=== PATIENT | male | born 1970 | race Caucasian/White ===

== ENCOUNTER 2021-02-03 09:48 | Emergency (ER) | payer BC, SELFPAY ==
--- NOTE | ~2021-02-03 | CT_ITS ---
EXAMINATION: CTA chest PE protocol DATE: 02/03/2021 10:48 INDICATION: Shortness of breath, dyspnea. Dizziness. TECHNIQUE: Computed tomography angiography (CTA) of the chest was performed with 100 mL Omnipaque-350 intravenous contrast timed to evaluate the pulmonary arteries. Coronal maximum intensity projection 3D-reconstructions were created by the technologist. Automated exposure control and iterative reconst ruction technique were employed. Exam dose: 325.81 mGy-cm total exam DLP. COMPARISON: 02/03/2021 portable AP chest FINDINGS: There is diagnostic contrast enhancement of the pulmonary central venous of pulmonary embol ism. No thoracic aortic aneurysm or dissection. Normal heart size. No pericardial or pleural effusion. The lungs are clear of infiltrate or consolidation. No pulmonary mass lesion is detected. Normal morphology of the adrenal glands. Included upper abdominal structures are unremarkable. No suspicious osteolytic or osteoblastic lesions. IMPRESSION: No evidence of pulmonary embolism Reviewed, dictated and finalized at [facility]. Reviewed, dictated and finalized at [facility].
--- NOTE | ~2021-02-03 | XR_ITS ---
EXAMINATION: XR chest 1V portable 02/03/2021 10:15 INDICATION: Cough PROCEDURE: AP portable chest COMPARISON: No prior studies for comparison. FINDINGS: The lungs are clear. The cardiomediastinal silhouette is within normal limits. There are no pleural effusions. There is no pneumothorax suspected. IMPRESSION: 1: NO ACUTE CARDIOPULMONARY DISEASE. Reviewed, dictated and finalized at [facility].
[2021-02-03 09:57] VITALS: BP 136/108; PULSE 108; RESP 24; TEMP 36.7; O2SAT 99
--- NOTE | 2021-02-03 09:57 | ECG_ITS ---
Measurements Intervals [place] Rate: 97 P: 148 GA: 182 QRS: 68 QRSD: 81 T: 128 QT: 313 QTc: 398 Interpretive Statements SINUS RHYTHM LIMB LEAD REVERSAL POSSIBLE LEFT ATRIAL ENLARGEMENT BORDERLINE ECG Electronically Signed On 02-03-2021 11:54:15 CDT by Kosta Padron D.O.
[2021-02-03 10:17] LABS: Basophils Percent Auto 0.3 % (0.2-1.2); Eosinophils Absolute Auto 0.1 K/mm3 (0-0.3); Eosinophils Percent Auto 2.5 % (0-4.4); Hematocrit 43.3 % (42.0-52.0); Hemoglobin 15.1 g/dL (14.0-18.0); Immature Granulocyte Absolute 0.01 K/mm3 (0.00-0.031); Immature Granulocyte Percent A 0.3 % (0-0.5); Lymphocytes Absolute Auto 0.31 K/mm3 (0.9-3.2); Lymphocytes Percent Auto 8.4 % (18.3-44.2); Mean Corpuscular HGB Conc 34.9 g/dl (32-36); Mean Corpuscular Hemoglobin 31.4 pg (26-34); Mean Platelet Volume 9.3 fl (7.4-10.4); Monocytes Absolute Auto 0.4 K/mm3 (0.1-0.6); Monocytes Percent Auto 9.8 % (2.6-8.5); Neutrophils Absolute Auto 2.9 K/mm3 (1.3-6.7); Neutrophils Percent Auto 78.7 % (45.5-73.1); Platelet Count Result 261 k/mm3 (150-375); Red Blood Count 4.81 M/mm3 (4.6-6.20); Red Cell Distribution Width 12.6 % (11.5-14.5); White Blood Count 3.7 K/mm3 (4.5-10.0)
--- NOTE | 2021-02-03 10:18 | ED.GENADULT ---
HPI - General Adult General Chief complaint: Shortness of Breath/Dyspnea Stated complaint: sent from [facility] Time Seen by Provider: 02/03/21 10:08 Source: RN notes reviewed History of Present Illness HPI narrative: Patient presents emergency department from home for shortness of breath. Patient states that symptoms began 6 days ago. States that shortness of breath is worse with exertion and notes no shortness of breath with sitting. He states he did have a subjective fever as well as itchy eyes and gone to the urgent care 5 days ago where he had had a rapid Covid test that was negative. Patient states that he also had a PCR test sent off that night that also came back negative. He states he continues have shortness of breath with exertion denies any chest pain abdominal pain nausea or vomiting calf pain or any other symptoms of concern Related Data Home Medications Medication Instructions Recorded Confirmed lisinopril 02/03/21 omeprazole 20 mg PO DAILY 02/03/21 Allergies Allergy/AdvReac Type Severity Reaction Status Date / Time No Known Allergies Allergy Verified 02/03/21 10:01 Review of Systems Review of Systems: Narrative: Gen.: Denies fevers or chills ENT: Denies congestion Respiratory: See HPI CV: Denies chest pain or palpitations GI: Denies abdominal pain nausea, emesis or diarrhea Musculoskeletal: Denies back pain or muscle pain Neuro: Denies numbness, tingling, weakness or focal weakness Skin: Denies rash Except as documented, all other systems reviewed and negative [facility] Past Medical History Medical History (Updated 02/03/21 @ 13:04 by Niles Archer DO) Hypertension Social History Social History (Updated 02/03/21 @ 10:20 by Niles Archer DO) Smoking status: Never smoker Exam Narrative: Exam Narrative: APPEARANCE: No acute distress, nontoxic, resting in bed EYES: EOMI HEENT: Normocephalic, atraumatic, OMM RESPIRATORY: No respiratory distress Clear to auscultation bilaterally with no rhonchi wheezing or rales. CARDIOVASCULAR: Regular rate and rhythm without murmurs rubs or gallops. ABDOMINAL: Soft, nontender, nondistended, no rebound or guarding MUSCULOSKELETAl: Moves all extremities. No clubbing, cyanosis or edema. Bilateral calves soft and nontender NEURO: Awake and alert. Following commands, speech normal, no focal deficits SKIN:: Warm, dry. No rashes lesions or abrasions PSYCHIATRIC: Normal affect/mood, Course Course Emergency Course: Discussed with patient at this time will repeat Covid swab and discharge to follow-up as an outpatient Discussed with patient results of workup and diagnosis. Discussed need for follow-up with primary care, proper use of medication, and reasons to return to the emergency department. Patient understands and agrees to current treatment plan Vital Signs Vital signs: Vital Signs Temperature 98.0 F 02/03/21 09:57 Pulse Rate 108 H 02/03/21 09:57 Respiratory Rate 24 H 02/03/21 09:57 Blood Pressure 136/108 H 02/03/21 09:57 Pulse Oximetry 99 02/03/21 09:57 Temperature 98.0 F 02/03/21 09:57 Pulse Rate 86 02/03/21 11:53 Respiratory Rate 16 02/03/21 11:53 Blood Pressure 133/93 H 02/03/21 11:53 Pulse Oximetry 100 02/03/21 11:53 Medical Decision Making MDM Narrative Medical decision making narrative: Patient has dyspnea of unclear etiology. No wheezing on clinical exam. CTA shows no signs of PE or pneumonia this time do question COVID-19 patient?s EKG is without high-risk changes. Oxygen saturations are normal. Patient is felt to be a reasonable candidate for additional evaluation as an outpatient. Vital Signs Vital Signs: Vital Signs Temperature 98.0 F 02/03/21 09:57 Pulse Rate 108 H 02/03/21 09:57 Respiratory Rate 24 H 02/03/21 09:57 Blood Pressure 136/108 H 02/03/21 09:57 Pulse Oximetry 99 02/03/21 09:57 Temperature 98.0 F 02/03/21 09:57 Pulse Rate 86 02/03/21 11:53 Respiratory Rat
[2021-02-03 10:27] VITALS: PULSE 94
[2021-02-03 10:28] LABS: D Dimer 2.61 ug/mL (<0.48)
[2021-02-03 10:28] LABS: Anion Gap 8 mmol/L (8-16); Blood Urea Nitrogen 24 mg/dL (9-20); Calcium 9.5 mg/dL (8.4-10.2); Carbon Dioxide 30 mmol/L (22-30); Chloride 101 mmol/L (98-107); Estimated CRCL calculation 120 ml/min; Estimated Glomerular Filt Rate > 60; Glucose 124 mg/dL (75-110); Potassium 4.2 mmol/L (3.4-5.0); Sodium 139 mmol/L (137-145)
[2021-02-03 10:30] VITALS: BP 133/93; PULSE 99; RESP 23; O2SAT 100
[2021-02-03 10:40] LABS: NT Pro B Type Natriuretic Pept 34 PG/ML (5-100); Troponin I < 0.012 ng/mL (0.000-0.034)
[2021-02-03 11:51] LABS: Add Urine Microscopic? NO; Appearance Urine Clear (Clear); Bilirubin Urine Negative (Negative); Blood Urine Negative (Negative); Color Urine Yellow (Yellow); Glucose Urine UA Negative (Negative); Ketones Urine Negative (Negative); Leukocyte Esterase Ur Negative LEU/UL (Negative); Nitrate Urine Negative (Negative); Protein Urine Negative (Negative); Urobilinogen Urine Negative mg/dL (<2.0)
[2021-02-03 11:53] VITALS: BP 133/93; PULSE 86; RESP 16; O2SAT 100
[2021-02-03 11:55] LABS: Specific Grav Ur 1.048 (1.001-1.035)
[2021-02-03 23:58] LABS: SARS-CoV-2 RNA PCR Negative
== END 2021-02-03 13:34 | disposition home or self-care (01) ==
PROVIDERS: Emergency Provider Emergency Medicine; PCP Registered Nurse
DX: R06.02 Shortness of breath (principal); Z20.822 Contact with and (suspected) exposure to COVID-19; I10 Essential (primary) hypertension; R94.31 Abnormal electrocardiogram [ECG] [EKG]
CPT/HCPCS: 36415; 71045; 71275; 80048; 81003; 83880; 84484; 85025; 85380; 93005; 99284; C9803; Q9967; U0003; U0005

== ENCOUNTER 2023-09-02 09:08 | Outpatient (CLI) | payer BC, SELFPAY ==
--- NOTE | ~2023-09-02 | XR_ITS ---
XR wrist RT min 3V 09/02/2023 09:22 Indication: Right wrist pain Procedure: 4 views right wrist Comparison: 07/05/2018 Findings: Progression of severe joint space narrowing of the radiocarpal joint. There is degenerative change of the triscaphe and first carpal metacarpal joints. 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 Reviewed, dictated and finalized at location [facility]. 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
== END 2023-09-02 09:09 | disposition home or self-care (01) ==
LOC: ANHIMG 09:12
PROVIDERS: PCP Family Medicine; Visit Provider Family Medicine
DX: Z00.00 Encounter for general adult medical examination without abnormal findings (principal); M19.031 Primary osteoarthritis, right wrist; I10 Essential (primary) hypertension
CPT/HCPCS: 73110

== ENCOUNTER 2024-05-04 09:06 | Outpatient (CLI) | payer BC, SELFPAY ==
--- NOTE | ~2024-05-04 | XR_ITS ---
XR hand LT min 3V DATE: 05/04/2024 09:29 INDICATION: Anterior wrist pain. History of arthritis. TECHNIQUE: 4 views COMPARISON: None FINDINGS: Mild polyarticular osteoarthritis, causing first carpometacarpal, second metacarpophalangea l and some interphalangeal joints. No fracture, dislocation, periosteal reaction or bone destruction. No erosive change or chondrocalcin osis. IMPRESSION: Mild polyarticular osteoarthritis Reviewed, dictated and finalized at location [facility].
--- NOTE | ~2024-05-04 | XR_ITS ---
XR wrist LT min 3V DATE: 05/04/2024 09:28 INDICATION: Anterior wrist pain TECHNIQUE: 4 views COMPARISON: None FINDINGS: Mild narrowing at the radiocarpal joint. Mild osteoarthritis at the first carpometacarpal j oint. No fracture or dislocation, periosteal reaction or bone destruction. No erosive change or chondrocalc inosis. IMPRESSION: Mild osteoarthritis at the radiocarpal and first carpometacarpal joints Reviewed, dictated and finalized at location [facility]. IMPRESSION: Mild osteoarthritis at the radiocarpal and first carpometacarpal avelina ints
== END 2024-05-04 09:07 | disposition home or self-care (01) ==
PROVIDERS: PCP Family Medicine; Visit Provider Internal Medicine
DX: M19.042 Primary osteoarthritis, left hand (principal); M19.032 Primary osteoarthritis, left wrist
CPT/HCPCS: 73110; 73130

== ENCOUNTER 2024-06-24 15:28 | Outpatient (CLI) | payer BC, SELFPAY ==
--- NOTE | ~2024-06-24 | MR_ITS ---
EXAMINATION: MR wrist RT wo/w con DATE: 06/24/2024 16:36 INDICATION: Chronic radial sided right wrist pain. Scapholunate ligament tear. TECHNIQUE: Magnetic resonance imaging (MRI) of the right wrist was performed without and with 13 mL M ultihance intravenous contrast. Sequences performed include axial PD-weighted FSE and PD-weighted FS FSE, coronal PD-weighted FS FSE and T1-weighted SE, and sagittal PD-weighted FS FSE and PD-weighted F SE. COMPARISON: None FINDINGS: Intrinsic ligaments: Complete tear of the scapholunate ligament with widening of the scapholunate interval. The lunotrique tral ligament remains normal. Triangular fibrocartilage complex (TFCC): The triangular fibrocartilage including its foveal and styloid attachments as well as the dorsal and volar radioulnar ligaments are normal. The ulnar collateral ligament, ulnotriquetral ligament and men iscal homologue are normal. The extensor carpi ulnaris tendon sheath is normal. Extensor wrist: Extensor tendons of the wrist are normal. No tenosynovitis. Flexor wrist: The flexor tendons of the wrist are normal. No abnormality in the carpal tunnel with normal median n erve. Guyon's canal: Guyon's canal including the ulnar nerve and artery are normal. Bones/other: No fracture. There is a dorsal intercalated segment instability (DISI) secondary to the scapholunate ligament tear with increased lunocapitate and scapholunate angles. This likely chronic in the atypica l pattern of advanced osteoarthritis at the radioscaphoid articulation with remodeling of both sides the joint space with loss of bone stock along the proximal scaphoid. This could be consistent with sc apholunate advanced collapse (SLAC) wrist. There is additional moderate osteoarthritis at the radial capitate, midcarpal, triscaphe and second carpometacarpal joints. Mild osteoarthritis at the distal r adioulnar and remaining carpal metacarpal joints. Likely secondary intraosseous ganglion cyst with th in peripheral rim of enhancement which fills a significant portion of the proximal metadiaphyseal reg ion of the second metacarpal. Additional subarticular cystlike and edema-like signal changes most pro minent at the distal radius and scaphoid and to lesser degree involving a few additional bones and th e carpus. There is likely reactive enhancing synovitis at the recess at the radial side of the wrist and triscaphe joints. IMPRESSION: 1. 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 Reviewed, dictated and finalized at location [facility]. IMPRESSION: 1. 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
== END 2024-06-24 15:29 ==
LOC: MICIMG 15:29
PROVIDERS: PCP Plastic Surgery; Visit Provider Plastic Surgery
DX: S63.501A Unspecified sprain of right wrist, initial encounter (principal); X58.XXXA Exposure to other specified factors, initial encounter
CPT/HCPCS: 73223; A9577